=== PATIENT | male | born 1950 | race Caucasian/White ===

== ENCOUNTER 2016-12-06 01:00 | Inpatient (IN) ==
--- NOTE | 2016-12-06 01:25 | Emergency Department Note ---
Disposition Clinical Impression: Diverticulitis, Abdominal pain Disposition: Admitted As Inpatient Condition: Good Time of Disposition: 04:00 ([email or web address]) Abdominal Pain HPI - General Chief Complaint: ED Abdominal Pain Stated Complaint: abdominal pain Time Seen by Provider: 12/06/16 01:01 Source: patient Mode of arrival: wheelchair Limitations: no limitations Nursing Notes Reviewed: Yes Vital Signs Reviewed: Yes - History of Present Illness HPI Narrative: Patient states that he most ER today really did not notice any problems or discomfort then approximately about an hour prior to arrival woke up with severe abdominal pain left lower quadrant radiating a little bit into the back no radiation down into the legs he denies any trauma while lying on his lawnmower denies it lifting twisting or tugging or pulling on the lawnmower he denies any blood in his urine blood in the stool he states that he has had no difficulty discharge tenths pain left lower quadrant no prior history of diverticular disorder Pt Subjective Complaint: abdominal pain Onset (ago): Just [employer] Consistency: constant, Improving Location: LLQ Pain Severity: moderate Pain Scale: 6 Quality: cramping Radiation: none Improves with: bowel movement Worsens with: nothing Associated symptoms: Reports: nausea, other (Urgency and frequency). Denies: vomiting, diarrhea, fever, chills, constipation, dysuria, hematemesis, hematochezia, melena, hematuria, anorexia, syncope Treatments prior to arrival: none - Related Data Home Medications Medication Instructions Recorded Confirmed Gabapentin [Neurontin] 300 mg PO BID 09/10/16 12/06/16 Metoprolol Tartrate [Metoprolol 25 mg PO BID 09/10/16 12/06/16 Tartrate] Quinapril HCl [Accupril] 20 mg PO DAILY 09/10/16 12/06/16 Tizanidine HCl [Zanaflex] 4 mg PO Q8H PRN 09/10/16 12/06/16 amLODIPine [Norvasc] 10 mg PO DAILY 09/10/16 12/06/16 Aspirin 325 mg PO DAILY 10/25/16 12/06/16 Previous Rx's Medication Instructions Recorded Albuterol Sulfate [Albuterol 2 puff IH Q4HR #1 hfa.aer.ad 10/25/16 Inhaler] Allergies Allergy/AdvReac Type Severity Reaction Status Date / Time No Known Allergies Allergy Verified 12/06/16 01:08 All systems ED: reviewed and negative except as stated. Constitutional: Reports: weakness. Denies: fever, chills Eyes: Denies: eye pain ENT ED: Denies: ear pain Cardiovascular: Denies: chest pain Respiratory: Denies: cough, dyspnea Gastrointestinal: Reports: abdominal pain, nausea. Denies: vomiting, diarrhea, constipation, hematemesis, melena, hematochezia Genitourinary: Reports: urgency, frequency. Denies: dysuria Musculoskeletal: Denies: back pain Integumentary: Denies: nipple discharge Neurological: Denies: headache Psychiatric: Denies: anxiety Endocrine: Denies: fatigue Hematological/Lymphatic: Denies: easy bleeding Allergic/Immunologic: Denies: urticaria Abdominal Pain PMH - Past Medical History Medical history: Reports: cardiomyopathy, COPD, hypertension, valvular heart disease Male Surgical History: Reports: herniorrhaphy, other Psychiatric history: Reports: no psych history - Social History Smoking status: Former smoker Alcohol use: Reports: none Drug use: Reports: none Physical Exam - General Limitations: no limitations General appearance: alert, in no apparent distress, anxious - Head Head exam: atraumatic, normocephalic, normal inspection - Eye Eye exam: Present: normal appearance, PERRL, EOMI - ENT ENT exam: normal exam, normal oropharynx, mucous membranes moist, normal external ear exam - Neck Neck exam: Present: normal inspection, full ROM, trachea midline - Chest Chest inspection: Present: normal inspection, symmetric chest wall rise - Respiratory Respiratory exam: Present: normal lung sounds bilaterally - Cardiovascular Cardiovascular exam: Present: regular rate, normal rhythm, normal heart sounds - Abdominal Exam Abdominal exam: Present: soft, tenderness, distention, guarding, normal bowel sounds. Absent: mass, pulsatile mass - Extremities Exam Extremities exam: Present: normal inspection, full ROM, normal capillary refill. Absent: tenderness, joint swelling - Expanded Lower Extremity Exam Neurovascular/Tendon exam: Present: normal capillary refill, normal fine/light touch Gait: observed and normal - Back Exam Back exam: Present: normal inspection, full ROM. Absent: muscle spasm - Neurological Exam Neurological exam: Present: alert, oriented X3, CN II-XII intact, normal gait - Psychiatric Psychiatric exam: Present: normal affect, normal mood - Skin Skin exam: Present: warm, dry, intact, normal color Course Course Narrative: Patient arrives to the emergency room he appears to be mildly N Terrie goes to the bathroom and then has a large amount of flatus and this [place] feeling a little bit better patient then was brought back to the bed x-rays and laboratory done patient's currently resting comfortably states though that he has pain along the left lower quadrant region down in the pelvis Vital Signs Temperature 97.5 F L 12/06/16 01:01 Pulse Rate 66 12/06/16 01:01 Respiratory Rate 16 12/06/16 01:01 Blood Pressure 106/72 12/06/16 01:01 O2 Sat by Pulse Oximetry 99 12/06/16 01:01 Temperature 103.1 F H 12/06/16 05:00 Pulse Rate 80 12/06/16 05:00 Respiratory Rate 16 12/06/16 05:00 Blood Pressure 151/72 12/06/16 05:00 O2 Sat by Pulse Oximetry 94 12/06/16 05:00 Oxygen Delivery Oxygen Delivery Room Air Abdominal Pain - Differential Diagnosis Differential Diagnosis: Likely: abdominal pain non-specific, diverticulitis, diverticulosis - Medical Records Medical records reviewed: Yes I reviewed the patient's medical records. - Lab Data Lab results reviewed: Yes I reviewed the patient's lab results. Result diagrams: 12/06/16 02:38 12/06/16 02:38 Lab Results 12/06/16 12/06/16 12/06/16 Range/Units 02:38 02:38 02:38 WBC 12.9 H (4.3-11.1) K/mcL RBC 4.62 (4.19-5.50) M/mcL Hgb 14.6 (12.9-16.9) g/dL Hct 44.0 (37.5-50.1) % MCV 95.2 (83.0-100.0) fL MCH 31.6 (28.0-33.3) pg MCHC 33.2 (31.6-35.5) g/dL RDW 13.6 (11.5-14.5) % Plt Count 272 (140-400) K/mcL MPV 9.3 L (9.4-12.4) fL Immature Gran % 0.8 (0-4) % Seg Neutrophils % 76.3 % Lymphocytes % 15.9 % Monocytes % 4.6 % Eosinophils % 2.2 % Basophils % 0.2 % Neutrophils # 9.8 H (1.6-8.9) K/mcL Lymphocytes # 2.1 (0.6-4.6) K/mcL Monocytes # 0.6 (0.0-1.3) K/mcL Eosinophils # 0.3 (0.0-0.6) K/mcL Basophils # 0.0 (0.0-0.2) K/mcL PT 9.4 (9.4-12.1) Seconds INR 0.9 APTT 28.0 (26.0-36.0) Seconds Sodium 141 (136-145) mEq/L Potassium 4.7 H (3.5-4.5) mEq/L Chloride 105 (98-109) mEq/L Carbon Dioxide 25 (19-29) mEq/L BUN 20 (8-26) mg/dL Creatinine 1.01 (0.72-1.25) mg/dL Est GFR ( Amer) > 60 (> 60) Est GFR (Non-Af Amer) > 60 (> 60) BUN/Creatinine Ratio 20 (6-26) Glucose 82 (70-99) mg/dL Calculated Osmolality 294 (280-300) Calcium 8.9 (8.6-10.8) mg/dL Total Bilirubin 0.5 (0.2-1.2) mg/dL AST 11 (5-34) Units/L ALT 13 (0-55) Units/L Alkaline Phosphatase 54 (38-126) Units/L Serum Total Protein 5.9 L (6.0-8.3) g/dL Albumin 3.2 L (3.5-5.0) g/dL Globulin 2.7 (2.4-3.5) g/dL Albumin/Globulin Ratio 1.2 (1.1-2.2) Lipase 48 (8-78) Units/L Urine Color (Yellow) Urine Clarity (Clear) Urine pH (5.0-8.0) pH Units Ur Specific [place] (1.010-1.025) Urine Protein (Neg-Trace) mg/dL Urine Glucose (UA) (Normal) mg/dL Urine Ketones (Negative) mg/dL Urine Blood (Negative) Urine Nitrite (Negative) Urine Bilirubin (Negative) Urine Urobilinogen (Normal) mg/dL Ur Leukocyte Esterase (Negative) Ur Culture Indicated? (NO) 12/06/16 Range/Units 03:10 WBC (4.3-11.1) K/mcL RBC (4.19-5.50) M/mcL Hgb (12.9-16.9) g/dL Hct (37.5-50.1) % MCV (83.0-100.0) fL MCH (28.0-33.3) pg MCHC (31.6-35.5) g/dL RDW (11.5-14.5) % Plt Count (140-400) K/mcL MPV (9.4-12.4) fL Immature Gran % (0-4) % Seg Neutrophils % % Lymphocytes % % Monocytes % % Eosinophils % % Basophils % % Neutrophils # (1.6-8.9) K/mcL Lymphocytes # (0.6-4.6) K/mcL Monocytes # (0.0-1.3) K/mcL Eosinophils # (0.0-0.6) K/mcL Basophils # (0.0-0.2) K/mcL PT (9.4-12.1) Seconds INR APTT (26.0-36.0) Seconds Sodium (136-145) mEq/L Potassium (3.5-4.5) mEq/L Chloride (98-109) mEq/L Carbon Dioxide (19-29) mEq/L BUN (8-26) mg/dL Creatinine (0.72-1.25) mg/dL Est GFR ( Amer) (> 60) Est GFR (Non-Af Amer) (> 60) BUN/Creatinine Ratio (6-26) Glucose (70-99) mg/dL Calculated Osmolality (280-300) Calcium (8.6-10.8) mg/dL Total Bilirubin (0.2-1.2) mg/dL AST (5-34) Units/L ALT (0-55) Units/L Alkaline Phosphatase (38-126) Units/L Serum Total Protein (6.0-8.3) g/dL Albumin (3.5-5.0) g/dL Globulin (2.4-3.5) g/dL Albumin/Globulin Ratio (1.1-2.2) Lipase (8-78) Units/L Urine Color Yellow (Yellow) Urine Clarity Clear (Clear) Urine pH 6.0 (5.0-8.0) pH Units Ur Specific [place] 1.015 (1.010-1.025) Urine Protein Negative (Neg-Trace) mg/dL Urine Glucose (UA) Normal (Normal) mg/dL Urine Ketones Negative (Negative) mg/dL Urine Blood Negative (Negative) Urine Nitrite Negative (Negative) Urine Bilirubin Negative (Negative) Urine Urobilinogen Normal (Normal) mg/dL Ur Leukocyte Esterase Negative (Negative) Ur Culture Indicated? NO (NO) - Radiology Data Radiology results reviewed: Yes I reviewed the patient's radiology results. ITS Impressions Abdomen/Pelvis CT 12/06/16 01:25 IMPRESSION: 1. Findings compatible with diverticulitis of the distal left colon. D/ / Andrez Gaspar MD / Andrez Gaspar MD Interpreting Provider: Andrez Gaspar MD Critical Care Time Critical Care Time: No
[2016-12-06] MEDS ORDERED: Ondansetron 4 MG/2 ML VIAL IVP ONE (01:48)
[2016-12-06] MEDS ORDERED: *HR* HYDROmorphone (PF) 1 MG/ML SYRINGE IVP ONE (01:48)
[2016-12-06] MEDS ORDERED: MetroNIDAZOLE 500 MG/100 ML 500 MG/100 ML BAG IVPB ONE (01:48)
[2016-12-06] MEDS ORDERED: 0.9 % Sodium Chloride 1,000 ML IVC ONE (01:48)
[2016-12-06 03:14] LABS: Bilirubin,Urine Negative (Negative); Blood,Urine Negative (Negative); Clarity,Urine Clear (Clear); Color,Urine Yellow (Yellow); Glucose,Urine (UA) Normal (Normal); Ketones,Urine Negative (Negative); Leukocyte Esterase,Urine Negative (Negative); Nitrite,Urine Negative (Negative); Protein,Urine Negative (Neg-Trace); Specific Gravity,Urine 1.015 (1.010-1.025); Urobilinogen,Urine Normal (Normal)
[2016-12-06 03:17] LABS: Basophils % 0.2 %; Eosinophils # 0.3 K/mcL (0.0-0.6); Eosinophils % 2.2 %; Hemoglobin 14.6 g/dL (12.9-16.9); Immature Granulocytes % 0.8 % (0-4); Lymphocytes # 2.1 K/mcL (0.6-4.6); Lymphocytes % 15.9 %; Mean Corpuscular HGB Conc 33.2 g/dL (31.6-35.5); Mean Corpuscular Hemoglobin 31.6 pg (28.0-33.3); Mean Corpuscular Volume 95.2 fL (83.0-100.0); Mean Platelet Volume 9.3 fL (9.4-12.4); Monocytes # 0.6 K/mcL (0.0-1.3); Monocytes % 4.6 %; Neutrophils # 9.8 K/mcL (1.6-8.9); Platelet Count 272 K/mcL (140-400); Red Blood Count 4.62 M/mcL (4.19-5.50); Red Cell Distribution Width 13.6 % (11.5-14.5); Segmented Neutrophils % 76.3 %
[2016-12-06 03:20] LABS: INR 0.9; Prothrombin Time 9.4 Seconds (9.4-12.1)
[2016-12-06 03:34] LABS: Alanine Aminotransferase 13 Units/L (0-55); Albumin 3.2 g/dL (3.5-5.0); Albumin/Globulin Ratio 1.2 (1.1-2.2); Alkaline Phosphatase 54 Units/L (38-126); Aspartate Amino Transferase 11 Units/L (5-34); BUN/Creatinine Ratio 20 (6-26); Bilirubin,Total 0.5 mg/dL (0.2-1.2); Blood Urea Nitrogen 20 mg/dL (8-26); Calcium 8.9 mg/dL (8.6-10.8); Carbon Dioxide 25 mEq/L (19-29); Chloride 105 mEq/L (98-109); Globulin 2.7 g/dL (2.4-3.5); Glucose 82 mg/dL (70-99); Lipase 48 Units/L (8-78); Osmolality,Calculated 294 (280-300); Potassium 4.7 mEq/L (3.5-4.5); Sodium 141 mEq/L (136-145); Total Protein 5.9 g/dL (6.0-8.3); eGFR For African Americans > 60 (> 60); eGFR For Non-African Americans > 60 (> 60)
[2016-12-06] MEDS ORDERED: Naloxone 0.4 MG/ML INJ IVP PRN (06:06)
[2016-12-06] MEDS ORDERED: Ondansetron 4 MG/2 ML VIAL IVP PRN (06:06)
[2016-12-06] MEDS: 0.9 % Sodium Chloride 1,000 ML IVC SCH ×3 (06:40→20:12)
[2016-12-06] MEDS ORDERED: Acetaminophen 325 MG TABLET PO PRN (07:02)
[2016-12-06] MEDS: Aspirin 325 MG TABLET PO SCH (07:47)
[2016-12-06] MEDS: Gabapentin 300 MG CAPSULE PO SCH ×2 (07:49→20:03)
[2016-12-06] MEDS ORDERED: tiZANidine 4 MG TABLET PO SCH (09:00)
[2016-12-06] MEDS ORDERED: amLODIPine 5 MG TABLET PO SCH (09:00)
--- NOTE | 2016-12-06 12:02 | Internal Med History&Physical ---
Date of Encounter: 12/06/16 Time of Encounter: 11:30 Assessment and Plan (1) Diverticulitis Current visit: Yes Status: Acute He has been started on IV Flagyl and Cipro. Analgesics will be given as needed. Diet will be advanced as tolerated. Qualifiers: Diverticulitis site: large intestine Diverticulitis bleeding: without bleeding Diverticulitis complication: without perforation or abscess Qualified Code(s): K57.32 - Diverticulitis of large intestine without perforation or abscess without bleeding (2) Hypertension Current visit: Yes Status: Chronic He has developed hypotension after administration of Norvasc, Lopressor, and Zestril. These will be held for now. Qualifiers: Hypertension type: essential hypertension Qualified Code(s): I10 - Essential (primary) hypertension (3) Chronic low back pain Current visit: Yes Status: Chronic Continue gabapentin. Qualifiers: Back pain laterality: midline Sciatica presence: unspecified whether sciatica present Qualified Code(s): M54.5 - Low back pain; G89.29 - Other chronic pain Internal Medicine - H&P: HPI Chief complaint: Abdominal pain Admitted From: Home Plans for Post Hospital Care: Home History of present illness: Mr. Johnson is a 66 year old male who came to emergency room stating he had onset of left lower quadrant abdominal discomfort approximately one hour earlier while at leisure at home. He took a Tylenol with minimal relief. He was evaluated in emergency room and felt to have diverticulitis. He was admitted to [facility] floor for ongoing care needs. He denies previous episodes of diverticulitis. He states had a colonoscopy approximately 4 years ago and reports no significant abnormalities were seen. He denies disorders of his liver gallbladder or exocrine pancreas. Past Med Surg Social Fam HX - Past Medical History Medical history: cardiomyopathy, COPD, hypertension, valvular heart disease Psychiatric history: no psych history - Past Surgical History Surgical History: non-contributory, vascular surgery (Aortic valve repair) - Social History Smoking Status: Former smoker Smokeless Tobacco Status: Yes (1 can every 3 days) Alcohol use: none Drug use: none - Family History Father Adopted: No Family Member Ethnicity: Non- Living Status: Age at : 62 Hx Family Cancer: Yes Mother Adopted: No Family Member Ethnicity: Non- Living Status: Hx Family Cancer: Yes Brother Adopted: No Family Member Ethnicity: Non- Living Status: Age at : 53 Hx Family Cardiac Disorders: Yes Internal Medicine - H&P: Meds Gabapentin [Neurontin] 300 mg PO BID 09/10/16 [History] Metoprolol Tartrate [Metoprolol Tartrate] 25 mg PO BID 09/10/16 [History] Quinapril HCl [Accupril] 20 mg PO DAILY 09/10/16 [History] Tizanidine HCl [Zanaflex] 4 mg PO Q8H PRN 09/10/16 [History] amLODIPine [Norvasc] 10 mg PO DAILY 09/10/16 [History] Albuterol Sulfate [Albuterol Inhaler] 2 puff IH Q4HR #1 hfa.aer.ad 10/25/16 [Rx] Aspirin 325 mg PO DAILY 10/25/16 [History] Allergies No Known Allergies Allergy (Verified 12/06/16 01:08) All Systems PM: A 10-system review of systems was performed and is negative for pertinent findings except as documented above in the HPI. Review of systems: Gen.: He states his weight has been stable the past few months Cardiovascular: He has a history of hypertension. He rarely gets chest pain on exertion. He had heart valve surgery in 2009 but does not know details. He denies heart failure DVT or pulmonary embolus Respiratory: He smoked from age [age] up to 3 packs per day. He claims a diagnosis of COPD but has not had PFTs. He does not wear home oxygen. GI: As per history of present illness : Denies hematuria dysuria or kidney stones Neurologic: He denies large distribution strokes or seizures. Endocrine: He denies diabetes thyroid disease or hyperlipidemia Hematology/oncology: Denies blood disorders cancers or anemia Psychiatric: He denies anxiety depression or other mental health issues [place] skeletal: He has chronic low back pain and DJD. He denies gout or other bone joint or muscle disorders. He did have left biceps surgery in the distant past. - Constitutional Vitals: Temp Pulse Resp BP Pulse Ox 97.7 F 58 18 71/43 97 12/06/16 10:15 12/06/16 10:15 12/06/16 10:15 12/06/16 10:15 12/06/16 10:15 Exam: Gen.: He is a well-developed well-nourished male lying in bed who appears in no acute distress HEENT: Head is atraumatic and normal cephalic. Eyes: EOMI. There is no scleral icterus.: Mucosa is moist. Neck: Supple and nontender. There is no thyromegaly or adenopathy noted. Heart: Regular without murmurs gallops or ectopics. Lungs: No wheezes or crackles are heard. Abdomen: Bowel sounds are absent. There is tenderness to palpation in the left lower abdominal area. No rebound or guarding is noted. Extremity: There is no cyanosis edema or clubbing noted. Dorsalis pedis and posttibial pulses are 1-2 over 2 bilaterally. Neurologic: Mental status: He is talkative and a good historian. Cranial nerves : Smile is symmetric. Or head wrinkles bilaterally. Tongue protrudes midline. EOMI. Motor: There is no pronator drift. Cerebellar: Finger to nose is intact bilaterally. Skin: Warm and dry Internal Med - H&P Results - Labs CBC & Chem 7: 12/06/16 02:38 12/06/16 02:38
[2016-12-06] MEDS: *HR* Enoxaparin 40 MG/0.4 ML SYRINGE SQ SCH (15:39)
[2016-12-06] MEDS: MetroNIDAZOLE 500 MG/100 ML 500 MG/100 ML BAG IVPB SCH ×2 (15:39→23:32)
[2016-12-06] MEDS: *HR* HYDROcodone/Acet 5/325 mg TABLET PO PRN (20:13)
[2016-12-07 05:07] LABS: Basophils % 0.2 %; Eosinophils # 0.2 K/mcL (0.0-0.6); Eosinophils % 1.7 %; Hemoglobin 12.3 g/dL (12.9-16.9); Immature Granulocytes % 0.5 % (0-4); Lymphocytes # 1.2 K/mcL (0.6-4.6); Lymphocytes % 10.4 %; Mean Corpuscular HGB Conc 33.2 g/dL (31.6-35.5); Mean Corpuscular Hemoglobin 31.5 pg (28.0-33.3); Mean Corpuscular Volume 94.6 fL (83.0-100.0); Mean Platelet Volume 9.5 fL (9.4-12.4); Monocytes % 8.3 %; Neutrophils # 9.1 K/mcL (1.6-8.9); Platelet Count 202 K/mcL (140-400); Red Blood Count 3.91 M/mcL (4.19-5.50); Red Cell Distribution Width 13.5 % (11.5-14.5); Segmented Neutrophils % 78.9 %
[2016-12-07 05:57] LABS: BUN/Creatinine Ratio 14 (6-26); Blood Urea Nitrogen 13 mg/dL (8-26); Calcium 7.9 mg/dL (8.6-10.8); Carbon Dioxide 21 mEq/L (19-29); Chloride 110 mEq/L (98-109); Glucose 88 mg/dL (70-99); Osmolality,Calculated 290 (280-300); Sodium 140 mEq/L (136-145); eGFR For African Americans > 60 (> 60); eGFR For Non-African Americans > 60 (> 60)
[2016-12-07] MEDS: *HR* Enoxaparin 40 MG/0.4 ML SYRINGE SQ SCH (06:08)
[2016-12-07] MEDS: *HR* HYDROcodone/Acet 5/325 mg TABLET PO PRN ×2 (06:08→17:40)
[2016-12-07] MEDS: 0.9 % Sodium Chloride 1,000 ML IVC SCH (06:08)
[2016-12-07] MEDS: MetroNIDAZOLE 500 MG/100 ML 500 MG/100 ML BAG IVPB SCH ×3 (07:32→23:10)
[2016-12-07] MEDS: Gabapentin 300 MG CAPSULE PO SCH ×2 (08:46→19:58)
[2016-12-07] MEDS: Aspirin 325 MG TABLET PO SCH (08:46)
--- NOTE | 2016-12-07 11:07 | Internal Med Progress Note ---
Date of Encounter: 12/07/16 Time of Encounter: 11:00 - Assessment and plan (1) Diverticulitis Current Visit: Yes Status: Acute Assessment and plan: December 07. Continue IV Flagyl and Cipro. Will start full liquid diet in a.m. and add lactobacillus. Qualifiers: Diverticulitis site: large intestine Diverticulitis bleeding: without bleeding Diverticulitis complication: without perforation or abscess Qualified Code(s): K57.32 - Diverticulitis of large intestine without perforation or abscess without bleeding (2) Hypertension Current Visit: Yes Status: Chronic Assessment and plan: December 07. Continue Lopressor but remain off Norvasc and Zestril. Qualifiers: Hypertension type: essential hypertension Qualified Code(s): I10 - Essential (primary) hypertension (3) Chronic low back pain Current Visit: Yes Status: Chronic Assessment and plan: December 07. Continue gabapentin Qualifiers: Back pain laterality: midline Sciatica presence: unspecified whether sciatica present Qualified Code(s): M54.5 - Low back pain; G89.29 - Other chronic pain - Subjective Interval history: December 07. He has no new complaints and feels better. - Constitutional Vitals: Temp Pulse Resp BP Pulse Ox 97.7 F 76 16 118/59 93 12/07/16 10:23 12/07/16 10:23 12/07/16 10:23 12/07/16 10:23 12/07/16 10:23 Exam: He is resting comfortably in bed. Bowel sounds are present but diminished. There is still tenderness in the left lower quadrant to palpation. Reviewed his medications and lab results. Internal Medicine: Result - Labs CBC & Chem 7: 12/07/16 04:17 12/07/16 04:17 Labs: Short CBC 12/07/16 Range/Units 04:17 WBC 11.5 H (4.3-11.1) K/mcL Hgb 12.3 L D (12.9-16.9) g/dL Hct 37.0 L (37.5-50.1) % Plt Count 202 (140-400) K/mcL Neutrophils # 9.1 H (1.6-8.9) K/mcL BMP 12/07/16 04:17 Sodium 140 Potassium 4.0 Chloride 110 H Carbon Dioxide 21 BUN 13 Creatinine 0.95 Glucose 88 Calcium 7.9 L - ABG Interpretation ABG results: PT/INR, D-dimer PT 9.4 Seconds (9.4-12.1) 12/06/16 02:38 Consult Discharge Plan - Plan Instructions: Diverticulitis (DC)
[2016-12-07 15:09] LABS: Acinetobacter baumannii by PCR Not Detected (Not Detect); Candida albicans by PCR Not Detected (Not Detect); Candida glabrata by PCR Not Detected (Not Detect); Candida krusei by PCR Not Detected (Not Detect); Candida parapsilosis by PCR Not Detected (Not Detect); Candida tropicalis by PCR Not Detected (Not Detect); Enterococcus by PCR Not Detected (Not Detect); Escherichia coli by PCR Not Detected (Not Detect); Klebsiella oxytoca by PCR Not Detected (Not Detect); Klebsiella pneumoniae by PCR Not Detected (Not Detect); Pseudomonas aeruginosa by PCR Not Detected (Not Detect); Serratia marcescens by PCR Not Detected (Not Detect); Staphylococcus aureus by PCR Not Detected (Not Detect); Streptococcus agalactiae(B)PCR Not Detected (Not Detect); Streptococcus by PCR Not Detected (Not Detect); Streptococcus pneumoniae PCR Not Detected (Not Detect); Streptococcus pyogenes (A) PCR Not Detected (Not Detect)
[2016-12-07] MEDS: Lactobacillus 1 EACH CAP.SPRINK PO SCH (19:58)
[2016-12-08] MEDS: *HR* HYDROcodone/Acet 5/325 mg TABLET PO PRN (04:50)
[2016-12-08 05:09] LABS: Basophils % 0.1 %; Eosinophils # 0.2 K/mcL (0.0-0.6); Eosinophils % 1.9 %; Hematocrit 34.4 % (37.5-50.1); Hemoglobin 11.7 g/dL (12.9-16.9); Immature Granulocytes % 0.5 % (0-4); Lymphocytes # 1.1 K/mcL (0.6-4.6); Mean Corpuscular Hemoglobin 32.1 pg (28.0-33.3); Mean Corpuscular Volume 94.2 fL (83.0-100.0); Mean Platelet Volume 9.1 fL (9.4-12.4); Monocytes # 0.8 K/mcL (0.0-1.3); Neutrophils # 7.3 K/mcL (1.6-8.9); Platelet Count 189 K/mcL (140-400); Red Blood Count 3.65 M/mcL (4.19-5.50); Red Cell Distribution Width 13.3 % (11.5-14.5); Segmented Neutrophils % 77.5 %
[2016-12-08] MEDS: *HR* Enoxaparin 40 MG/0.4 ML SYRINGE SQ SCH (06:04)
[2016-12-08] MEDS: MetroNIDAZOLE 500 MG/100 ML 500 MG/100 ML BAG IVPB SCH (06:56)
[2016-12-08] MEDS: Aspirin 325 MG TABLET PO SCH (08:04)
[2016-12-08] MEDS: Lactobacillus 1 EACH CAP.SPRINK PO SCH (08:04)
[2016-12-08] MEDS: Gabapentin 300 MG CAPSULE PO SCH (08:04)
[2016-12-08 10:22] VITALS: BP 129/73
--- NOTE | 2016-12-08 11:50 | Discharge Summary ---
Date of Encounter: 12/08/16 Time of Encounter: 11:35 - Discharge Diagnosis (1) Diverticulitis Priority: Primary Status: Acute Qualifiers: Diverticulitis site: large intestine Diverticulitis bleeding: without bleeding Diverticulitis complication: without perforation or abscess Qualified Code(s): K57.32 - Diverticulitis of large intestine without perforation or abscess without bleeding (2) Hypertension Priority: Secondary Status: Chronic Qualifiers: Hypertension type: essential hypertension Qualified Code(s): I10 - Essential (primary) hypertension (3) Chronic low back pain Priority: Secondary Status: Chronic Qualifiers: Back pain laterality: midline Sciatica presence: unspecified whether sciatica present Qualified Code(s): M54.5 - Low back pain; G89.29 - Other chronic pain - Discharge Medications Prescriptions: Ciprofloxacin [Cipro] 500 mg PO BID #6 tablet Lactobacillus [Culturelle] 1 each PO BID #6 cap.sprink metroNIDAZOLE [Flagyl] 500 mg PO Q8H #9 tablet Home Medications: Gabapentin [Neurontin] 300 mg PO BID 09/10/16 [History] Metoprolol Tartrate 25 mg PO BID 09/10/16 [History] Tizanidine HCl [Zanaflex] 4 mg PO Q8H PRN 09/10/16 [History] Albuterol Sulfate [Albuterol Inhaler] 2 puff IH Q4HR #1 hfa.aer.ad 10/25/16 [Rx] Aspirin 325 mg PO DAILY 10/25/16 [History] Ciprofloxacin [Cipro] 500 mg PO BID #6 tablet 12/08/16 [Rx] Lactobacillus [Culturelle] 1 each PO BID #6 cap.sprink 12/08/16 [Rx] metroNIDAZOLE [Flagyl] 500 mg PO Q8H #9 tablet 12/08/16 [Rx] Allergies/Adverse Reactions: Allergies No Known Allergies Allergy (Verified 12/06/16 01:08) Date of admission: 12/06/16 18:45 Primary care physician: Jennifer Knight M.D. - Patient Status Disposition: Home, Self-Care Condition: Good Functional capacity at discharge: independent ambulation Overall status at discharge: patient is progressing back to baseline - Discharge Instructions Instructions: Diverticulitis (DC) Follow Up With: Jennifer Knight MD [Partnered Physician] - 1 week - Diet and Activity Activity: resume usual activities as tolerated Diet: advance to your usual diet Hospital course: Mr. Johnson is a 66 year old male who came to emergency room stating he had onset of left lower quadrant abdominal discomfort approximately one hour earlier while at leisure at home. He took a Tylenol with minimal relief. He was evaluated in emergency room and felt to have diverticulitis. He was admitted to [facility] for ongoing care needs. Initial orders were written by the emergency room physician. I saw him on December 06 and performed a history and physical. He was started on IV Flagyl and Cipro. Analgesics were given as needed. He had gradual lessening of his abdominal pain. WBC normalized to 9.4 on the day of discharge with segs 77.5%. He was able to tolerate adequate amount of food and fluids. He developed hypotension so Norvasc and Zestril were discontinued. His blood pressure normalized. He will remain off these at discharge but continue Lopressor. On December 08 he felt stable for discharge home. He will follow with his PCP Dr. Knight within 1 week. - Time Spent with Patient Total time spent providing and/or coordinating discharge services: - Constitutional Vitals: Temp Pulse Resp BP Pulse Ox 98.7 F 72 16 129/73 94 12/08/16 10:20 12/08/16 10:20 12/08/16 10:20 12/08/16 10:20 12/08/16 10:20
== END 2016-12-08 12:18 | disposition home or self-care (01) | DRG 392 ==
LOC: EMEROOPIK 01:00 → INPPIK 01:00
PROVIDERS: ADMIT Internal Medicine; ATTEND Internal Medicine

== ENCOUNTER 2020-03-24 11:53 | Inpatient (IN) ==
[2020-03-24 12:35] LABS: Bilirubin,Urine Negative (Negative); Blood,Urine Negative (Negative); Clarity,Urine Clear (Clear); Color,Urine Yellow (Yellow); Glucose,Urine (UA) Normal (Normal); Ketones,Urine Negative (Negative); Leukocyte Esterase,Urine Negative (Negative); Nitrite,Urine Negative (Negative); Protein,Urine 30 mg/dL (Neg-Trace); Specific Gravity,Urine 1.025 (1.010-1.025); Urobilinogen,Urine Normal (Normal)
[2020-03-24 12:42] LABS: Amorphous Sediment,Urine Few per hpf (None-Few); Bacteria,Urine Moderate per hpf (None-Few); Squamous Epithelial Cell,Urine Few per hpf (None-Few); WBC,Urine 0-3 per hpf (0-3)
[2020-03-24 12:43] LABS: Granular Casts,Urine Few per lpf (None Seen); Hyaline Casts,Urine Few per lpf (None Seen); Mucus,Urine Many per lpf (None-Few); White Blood Cell Casts,Urine Many per lpf (None Seen)
[2020-03-24 12:53] LABS: Basophils % 0.2 %; Eosinophils % 0.2 %; Hemoglobin 12.2 g/dL (12.9-16.9); Immature Granulocytes % 1.1 % (0-4); Lymphocytes # 1.9 K/mcL (0.6-4.6); Lymphocytes % 9.3 %; Mean Corpuscular Hemoglobin 30.7 pg (28.0-33.3); Mean Corpuscular Volume 93.2 fL (83.0-100.0); Mean Platelet Volume 9.5 fL (9.4-12.4); Monocytes # 1.4 K/mcL (0.0-1.3); Monocytes % 6.8 %; Neutrophils # 16.7 K/mcL (1.6-8.9); Platelet Count 492 K/mcL (140-400); Red Blood Count 3.97 M/mcL (4.19-5.50); Red Cell Distribution Width 13.9 % (11.5-14.5); Segmented Neutrophils % 82.4 %; White Blood Count 20.3 K/mcL (4.3-11.1)
[2020-03-24] MEDS ORDERED: Azithromycin 500 MG in 0.9 % Sodium Chloride 250 ML IVPB ONE (13:01)
[2020-03-24] MEDS ORDERED: methylPREDNISolone 125 MG/2 ML VIAL IVP ONE (13:01)
[2020-03-24] MEDS ORDERED: 0.9 % Sodium Chloride 500 ML IVC ONE (13:01)
[2020-03-24] MEDS ORDERED: 0.9 % Sodium Chloride 1,000 ML IVC ONE (13:01)
[2020-03-24] MEDS ORDERED: cefTRIAXone 2,000 MG in Water for inj. (sterile) 20 ML IVP ONE (13:01)
[2020-03-24 13:12] LABS: Alanine Aminotransferase 21 Units/L (7-52); Albumin 2.4 g/dL (3.5-5.7); Albumin/Globulin Ratio 0.8 (1.1-2.2); Alkaline Phosphatase 169 Units/L (34-104); Aspartate Amino Transferase 22 Units/L (13-39); BUN/Creatinine Ratio 26 (6-26); Bilirubin,Direct 0.1 mg/dL (0.0-0.2); Bilirubin,Indirect 0.3 mg/dL (0.0-1.0); Bilirubin,Total 0.4 mg/dL (0.3-1.0); Blood Urea Nitrogen 29 mg/dL (8-23); Calcium 8.7 mg/dL (8.6-10.3); Carbon Dioxide 24 mEq/L (23-29); Chloride 108 mEq/L (98-107); Globulin 3.2 g/dL (2.4-3.5); Glucose 96 mg/dL (70-105); Osmolality,Calculated 304 (280-300); Sodium 144 mEq/L (136-145); Total Protein 5.6 g/dL (6.4-8.9); Troponin I < 0.03 ng/mL (< 0.04); eGFR For African Americans > 60 (> 60); eGFR For Non-African Americans > 60 (> 60)
[2020-03-24] MEDS: 0.9 % Sodium Chloride 1,000 ML IVC SCH ×2 (14:36→23:17)
[2020-03-24 15:18] LABS: Adenovirus Not Detected (Not Detect); Bordetella Pertussis Not Detected (Not Detect); Chlamydophila pneumoniae Not Detected (Not Detect); Coronavirus 229E Not Detected (Not Detect); Coronavirus HKU1 Not Detected (Not Detect); Coronavirus NL63 Not Detected (Not Detect); Coronavirus OC43 Not Detected (Not Detect); Human Metapneumovirus Not Detected (Not Detect); Human Rhinovirus/Enterovirus Not Detected (Not Detect); Influenza A Subtype 2009 H1 Not Detected (Not Detect); Influenza B Not Detected (Not Detect); Mycoplasma pneumoniae Not Detected (Not Detect); Parainfluenza Virus 1 Not Detected (Not Detect); Parainfluenza Virus 2 Not Detected (Not Detect); Parainfluenza Virus 3 Not Detected (Not Detect); Parainfluenza Virus 4 Not Detected (Not Detect); Respiratory Syncytial Virus Not Detected (Not Detect); SARS-CoV-2 Not Detected (Not Detect)
[2020-03-24] MEDS ORDERED: MOM Conc 10 ML UD.LIQ PO PRN (15:56)
[2020-03-24] MEDS ORDERED: Mag Hydrox/Al Hydrox/Simeth 30 ML UDC PO PRN (15:56)
[2020-03-24] MEDS ORDERED: Naloxone 0.4 MG/ML INJ IVP PRN (15:56)
[2020-03-24] MEDS ORDERED: Ondansetron 4 MG/2 ML VIAL IVP PRN (15:56)
[2020-03-24] MEDS ORDERED: *HR* HYDROcodone/Acet 5/325 mg TABLET PO PRN (15:59)
[2020-03-24] MEDS: tiZANidine 4 MG TABLET PO SCH (19:32)
[2020-03-24] MEDS: Gabapentin 300 MG CAPSULE PO SCH (19:32)
[2020-03-24] MEDS: Budesonide/Formoterol 160/4.5 1 PUFF INH IH SCH (22:24)
[2020-03-24] MEDS: MethylPREDNISolone 40 MG/ML VIAL IVP SCH (23:28)
[2020-03-25 05:44] LABS: Basophils % 0.1 %; Hematocrit 34.7 % (37.5-50.1); Hemoglobin 11.1 g/dL (12.9-16.9); Immature Granulocytes % 1.6 % (0-4); Lymphocytes # 0.8 K/mcL (0.6-4.6); Lymphocytes % 10.4 %; Mean Corpuscular Hemoglobin 30.4 pg (28.0-33.3); Mean Corpuscular Volume 95.1 fL (83.0-100.0); Mean Platelet Volume 9.6 fL (9.4-12.4); Monocytes # 0.1 K/mcL (0.0-1.3); Monocytes % 1.3 %; Neutrophils # 6.7 K/mcL (1.6-8.9); Platelet Count 447 K/mcL (140-400); Red Blood Count 3.65 M/mcL (4.19-5.50); Segmented Neutrophils % 86.6 %; White Blood Count 7.7 K/mcL (4.3-11.1)
[2020-03-25 06:09] LABS: BUN/Creatinine Ratio 27 (6-26); Blood Urea Nitrogen 33 mg/dL (8-23); Calcium 7.6 mg/dL (8.6-10.3); Carbon Dioxide 23 mEq/L (23-29); Chloride 111 mEq/L (98-107); Glucose 149 mg/dL (70-105); Osmolality,Calculated 306 (280-300); Potassium 5.1 mEq/L (3.5-5.1); Sodium 143 mEq/L (136-145); eGFR For African Americans > 60 (> 60); eGFR For Non-African Americans 59 (> 60)
[2020-03-25] MEDS: Ipratropium/Albuterol Neb 3 ML IH PRN ×2 (07:02→16:08)
[2020-03-25] MEDS: 0.9 % Sodium Chloride 1,000 ML IVC SCH ×2 (07:03→14:21)
[2020-03-25] MEDS: Azithromycin 500 MG in 0.9 % Sodium Chloride 250 ML IVPB SCH (08:02)
[2020-03-25] MEDS: MethylPREDNISolone 40 MG/ML VIAL IVP SCH ×2 (08:03→16:30)
[2020-03-25] MEDS: cefTRIAXone 1,000 MG in Water for inj. (sterile) 10 ML IVP SCH (08:03)
[2020-03-25] MEDS: Aspirin 325 MG TABLET PO SCH (08:04)
[2020-03-25] MEDS: Gabapentin 300 MG CAPSULE PO SCH ×2 (08:04→20:54)
[2020-03-25] MEDS: amLODIPine 5 MG TABLET PO SCH (08:04)
[2020-03-25] MEDS: lisinopriL 20 MG TABLET PO SCH (08:04)
[2020-03-25] MEDS: Roflumilast [Daliresp] 500 MCG PO SCH (08:04)
[2020-03-25] MEDS ORDERED: cefTRIAXone 1,000 MG in 0.9 % Sodium Chloride Mini Bag 100 ML IVPB SCH (09:00)
[2020-03-25] MEDS ORDERED: NON-FORMULARY MEDICATION 1 EACH EACH (Fluticasone/Umeclidin/Vilanter [Trelegy Ellipta 100- IH SCH (09:00)
[2020-03-25] MEDS: Budesonide/Formoterol 160/4.5 1 PUFF INH IH SCH ×2 (09:06→22:05)
[2020-03-25] MEDS: Tiotropium 18 MCG inhalation IH SCH (09:06)
[2020-03-25] MEDS: tiZANidine 4 MG TABLET PO SCH (20:54)
[2020-03-26] MEDS: MethylPREDNISolone 40 MG/ML VIAL IVP SCH ×3 (00:30→17:56)
[2020-03-26] MEDS: Ipratropium/Albuterol Neb 3 ML IH PRN ×4 (00:40→21:32)
[2020-03-26 05:27] LABS: Basophils % 0.1 %; Hematocrit 35.5 % (37.5-50.1); Hemoglobin 11.5 g/dL (12.9-16.9); Immature Granulocytes % 1.2 % (0-4); Lymphocytes # 0.9 K/mcL (0.6-4.6); Lymphocytes % 6.8 %; Mean Corpuscular HGB Conc 32.4 g/dL (31.6-35.5); Mean Corpuscular Hemoglobin 30.5 pg (28.0-33.3); Mean Corpuscular Volume 94.2 fL (83.0-100.0); Mean Platelet Volume 9.4 fL (9.4-12.4); Monocytes # 0.3 K/mcL (0.0-1.3); Monocytes % 2.1 %; Neutrophils # 11.4 K/mcL (1.6-8.9); Platelet Count 500 K/mcL (140-400); Red Blood Count 3.77 M/mcL (4.19-5.50); Red Cell Distribution Width 13.9 % (11.5-14.5); Segmented Neutrophils % 89.8 %; White Blood Count 12.7 K/mcL (4.3-11.1)
[2020-03-26 05:44] LABS: BUN/Creatinine Ratio 38 (6-26); Blood Urea Nitrogen 36 mg/dL (8-23); Calcium 7.7 mg/dL (8.6-10.3); Carbon Dioxide 22 mEq/L (23-29); Chloride 114 mEq/L (98-107); Glucose 150 mg/dL (70-105); Osmolality,Calculated 311 (280-300); Potassium 4.1 mEq/L (3.5-5.1); Sodium 145 mEq/L (136-145); eGFR For African Americans > 60 (> 60); eGFR For Non-African Americans > 60 (> 60)
[2020-03-26] MEDS: Tiotropium 18 MCG inhalation IH SCH (07:55)
[2020-03-26] MEDS: Budesonide/Formoterol 160/4.5 1 PUFF INH IH SCH ×2 (07:56→21:31)
[2020-03-26] MEDS: cefTRIAXone 1,000 MG in Water for inj. (sterile) 10 ML IVP SCH (07:56)
[2020-03-26] MEDS: Azithromycin 500 MG in 0.9 % Sodium Chloride 250 ML IVPB SCH (07:57)
[2020-03-26] MEDS: Aspirin 325 MG TABLET PO SCH (07:57)
[2020-03-26] MEDS: lisinopriL 20 MG TABLET PO SCH (07:57)
[2020-03-26] MEDS: Gabapentin 300 MG CAPSULE PO SCH ×2 (07:57→19:53)
[2020-03-26] MEDS: Roflumilast [Daliresp] 500 MCG PO SCH (07:58)
[2020-03-26] MEDS: amLODIPine 5 MG TABLET PO SCH (07:58)
[2020-03-26] MEDS ORDERED: MethylPREDNISolone 40 MG/ML VIAL IVP SCH (10:15)
[2020-03-26] MEDS: Acetaminophen 325 MG TABLET PO PRN (16:57)
[2020-03-26] MEDS ORDERED: 0.9 % Sodium Chloride 1,000 ML ONE (17:46)
[2020-03-26] MEDS: tiZANidine 4 MG TABLET PO SCH (19:53)
[2020-03-27] MEDS: Ipratropium/Albuterol Neb 3 ML IH PRN ×3 (04:51→16:01)
[2020-03-27 05:39] LABS: Basophils % 0.1 %; Hematocrit 32.6 % (37.5-50.1); Hemoglobin 10.4 g/dL (12.9-16.9); Immature Granulocytes % 0.7 % (0-4); Lymphocytes # 1.5 K/mcL (0.6-4.6); Lymphocytes % 12.4 %; Mean Corpuscular HGB Conc 31.9 g/dL (31.6-35.5); Mean Corpuscular Hemoglobin 30.4 pg (28.0-33.3); Mean Corpuscular Volume 95.3 fL (83.0-100.0); Mean Platelet Volume 9.7 fL (9.4-12.4); Monocytes # 0.5 K/mcL (0.0-1.3); Monocytes % 4.6 %; Neutrophils # 9.6 K/mcL (1.6-8.9); Platelet Count 463 K/mcL (140-400); Red Blood Count 3.42 M/mcL (4.19-5.50); Red Cell Distribution Width 13.7 % (11.5-14.5); Segmented Neutrophils % 82.2 %; White Blood Count 11.7 K/mcL (4.3-11.1)
[2020-03-27 06:06] LABS: BUN/Creatinine Ratio 39 (6-26); Blood Urea Nitrogen 34 mg/dL (8-23); Calcium 7.7 mg/dL (8.6-10.3); Carbon Dioxide 25 mEq/L (23-29); Chloride 114 mEq/L (98-107); Glucose 110 mg/dL (70-105); Osmolality,Calculated 310 (280-300); Potassium 4.6 mEq/L (3.5-5.1); Sodium 146 mEq/L (136-145); eGFR For African Americans > 60 (> 60); eGFR For Non-African Americans > 60 (> 60)
[2020-03-27] MEDS: MethylPREDNISolone 40 MG/ML VIAL IVP SCH ×2 (06:08→08:11)
[2020-03-27] MEDS: amLODIPine 5 MG TABLET PO SCH (08:12)
[2020-03-27] MEDS: Aspirin 325 MG TABLET PO SCH (08:12)
[2020-03-27] MEDS: Gabapentin 300 MG CAPSULE PO SCH ×2 (08:31→20:14)
[2020-03-27] MEDS: Roflumilast [Daliresp] 500 MCG PO SCH (08:33)
[2020-03-27] MEDS: Azithromycin 500 MG in 0.9 % Sodium Chloride 250 ML IVPB SCH (08:34)
[2020-03-27] MEDS: lisinopriL 20 MG TABLET PO SCH (08:46)
[2020-03-27] MEDS: Budesonide/Formoterol 160/4.5 1 PUFF INH IH SCH ×2 (09:47→22:34)
[2020-03-27] MEDS: Tiotropium 18 MCG inhalation IH SCH (09:48)
[2020-03-27] MEDS: cefTRIAXone 1,000 MG in Water for inj. (sterile) 10 ML IVP SCH (10:22)
[2020-03-27] MEDS: Acetaminophen 325 MG TABLET PO PRN (20:11)
[2020-03-27] MEDS: tiZANidine 4 MG TABLET PO SCH (20:12)
[2020-03-28] MEDS: Ipratropium/Albuterol Neb 3 ML IH PRN (02:37)
[2020-03-28 05:41] LABS: Basophils % 0.2 %; Eosinophils % 0.2 %; Hematocrit 30.2 % (37.5-50.1); Hemoglobin 9.8 g/dL (12.9-16.9); Immature Granulocytes % 0.6 % (0-4); Lymphocytes # 3.1 K/mcL (0.6-4.6); Lymphocytes % 24.9 %; Mean Corpuscular HGB Conc 32.5 g/dL (31.6-35.5); Mean Corpuscular Hemoglobin 30.7 pg (28.0-33.3); Mean Corpuscular Volume 94.7 fL (83.0-100.0); Mean Platelet Volume 9.3 fL (9.4-12.4); Monocytes # 0.8 K/mcL (0.0-1.3); Monocytes % 6.1 %; Neutrophils # 8.5 K/mcL (1.6-8.9); Platelet Count 426 K/mcL (140-400); Red Blood Count 3.19 M/mcL (4.19-5.50); Red Cell Distribution Width 13.6 % (11.5-14.5); White Blood Count 12.5 K/mcL (4.3-11.1)
[2020-03-28 06:02] LABS: BUN/Creatinine Ratio 42 (6-26); Blood Urea Nitrogen 31 mg/dL (8-23); Calcium 7.2 mg/dL (8.6-10.3); Carbon Dioxide 25 mEq/L (23-29); Chloride 111 mEq/L (98-107); Glucose 67 mg/dL (70-105); Osmolality,Calculated 297 (280-300); Potassium 3.7 mEq/L (3.5-5.1); Sodium 141 mEq/L (136-145); eGFR For African Americans > 60 (> 60); eGFR For Non-African Americans > 60 (> 60)
[2020-03-28] MEDS: MethylPREDNISolone 40 MG/ML VIAL IVP SCH (06:25)
[2020-03-28 08:22] VITALS: BP 154/74
[2020-03-28] MEDS: Budesonide/Formoterol 160/4.5 1 PUFF INH IH SCH (08:40)
[2020-03-28] MEDS: Aspirin 325 MG TABLET PO SCH (08:41)
[2020-03-28] MEDS: Gabapentin 300 MG CAPSULE PO SCH (08:41)
[2020-03-28] MEDS: Tiotropium 18 MCG inhalation IH SCH (08:41)
[2020-03-28] MEDS: amLODIPine 5 MG TABLET PO SCH (08:41)
[2020-03-28] MEDS: cefTRIAXone 1,000 MG in Water for inj. (sterile) 10 ML IVP SCH (08:42)
[2020-03-28] MEDS: lisinopriL 20 MG TABLET PO SCH (08:42)
[2020-03-28] MEDS: Roflumilast [Daliresp] 500 MCG PO SCH (08:57)
[2020-03-28] MEDS: Azithromycin 500 MG in 0.9 % Sodium Chloride 250 ML IVPB SCH (09:26)
[2020-03-28 21:08] LABS: % Iron Saturation 21 % (20-55); Iron 51 mcg/dL (65-175); Transferrin 175 mg/dL (203-362)
[2020-03-28 21:27] LABS: Folate 5.3 ng/mL (3.0-16.0)
[2020-03-28 21:30] LABS: Vitamin B12 > 1500 pg/mL (250-1100)
== END 2020-03-28 12:45 | disposition home or self-care (01) | DRG 194 ==
LOC: INPPIK 11:53 → EMEROOPIK 11:53 → INPPIK 15:57
PROVIDERS: ADMIT Family Medicine; ATTEND Family Medicine